=== PATIENT | female | born 1990 | race Caucasian/White ===

== ENCOUNTER 2019-12-23 14:01 | Emergency (ER) | payer OTHER ==
[2019-12-23] MEDS ORDERED: AMOXICILLIN/CL875 MG PO (15:47)
[2019-12-23] MEDS ORDERED: FLOXIN OTIC0.3 % AS (15:48)
[2019-12-23 16:07] VITALS: BP 151/96
== END 2019-12-23 16:10 | disposition home or self-care (01) ==
LOC: ED 14:01
DX: H60.92 Unspecified otitis externa, left ear (principal)